=== PATIENT | male | born 1960 | race Caucasian/White ===

== ENCOUNTER → 2017-10-15 | Outpatient (CLI) | payer MEDICARE ==
[~2017-10-15] MED LIST: ACE3 PO; ASP325 PO; CEP500 PO; CEPH-312 PO; CYC10 PO; DIA10 PO; FAM20 PO; FUR20 PO; FURO-45 PO; GAB300 PO; GABA25PO16 PO; GABAPENTIN; HYDR-3087 PO; HYDR-3102 PO; HYDROCODONE PO; INDO-1 PO; INDO75CA PO; IOPAMIDOL 76% 75 ML INFUS BTL 75 ML ONE; KET10 PO; LOR5/325 PO; LOR7.5/325 PO; MAX75 PO; MORP-46 PO; OND8 PO; OXYC15TA PO; PAN40 PO; PAR20 PO; PER PO; PRA20 PO; PRAM0.5T27 PO; PRAV10TA45 PO; ROS10 PO; VENL100T21 PO; VENL150C61 PO; VENL75TA PO; [UNRECOGNIZED DRUG - CODE] PO
--- NOTE | 2017-10-15 14:01 | RADIOLOGY IMAGING REPORT ---
FACILITY: [facility] [place] PATIENT NAME: Ozzy Wheeler : 1960 MR: [id number] V: [id number] EXAM DATE: ORDERING PHYSICIAN: HEMALATHA PUGH TECHNOLOGIST: Location: [facility] Patient: Ozzy Wheeler : 1960 Visit/Account:[id number] Date of Sevice: 10/15/2017 ABDOMEN/PELVIS W/WO CONTRAST HISTORY: Abdominal pain, feeling of lesion in right upper and right lower abdomen wall x1 year TECHNIQUE: Axial images acquired through the abdomen/pelvis both with and without IV contrast.. Charleen nal and sagittal reformatting also performed. Dose Lowering Technique One of the following dose optimization techniques was utilized in the performance of this exam: Autom ated exposure control; adjustment of the mA and/or kV according to the patient's size; or use of an i terative reconstruction technique. Specific details can be referenced in the facility's radiology C T exam operational policy. CONTRAST: 75 mL Isovue-370 COMPARISON: March 16, 2010 FINDINGS: Visualized lung bases: Negative. Hepatobiliary: Negative. Spleen: Accessory splenule Adrenals: Negative. Pancreas: Negative. Kidneys ureters and bladder: There is a small subcentimeter hypodensity anterior left kidney too smal l to characterize although appears similar to the prior examination . There is moderate bladder wall thickening Genitalia: Prostate gland appears mildly inhomogeneous. There are calcifications along the base of the penis GI: The appendix is visualized does not appear inflamed. There is no evidence of bowel obstruction or bowel wall thickening Vessels/spaces/nodes: There are moderate vascular calcifications present . Bones/soft tissues: There is a small umbilical hernia containing fat. There are small bilateral ing uinal hernias containing fat. . There are postsurgical changes lower lumbar spine Additional findings: None pertinent. IMPRESSION: There is a small umbilical hernia containing fat and small bilateral inguinal hernias containing fat Moderate bladder wall thickening possibly related to cystitis or BPH although the prostate does not a ppear grossly enlarged. It is mildly inhomogeneous. Moderate vascular calcifications Additional chronic findings as described Report Dictated By: Nicole Brito MD at 10/15/2017 1:43 PM Report E-Signed By: Nicole Brito MD at 10/15/2017 1:56 PM WSN:[email or web address]
== END ==
LOC: CT 07:38
PROVIDERS: ATTEND Nurse Practitioner Family
DX: K42.9 Umbilical hernia without obstruction or gangrene (principal); I25.10 Atherosclerotic heart disease of native coronary artery without angina pectoris
CPT/HCPCS: 74178; Q9967

== ENCOUNTER → 2017-12-16 | Outpatient (CLI) | payer MEDICARE ==
[~2017-12-16] MED LIST changes: -IOPAMIDOL 76% 75 ML INFUS BTL 75 ML ONE
--- NOTE | 2017-12-16 16:43 | RADIOLOGY IMAGING REPORT ---
[place] [facility] [place] [place] Ozzy Wheeler : 1960 MR: [id number] V: [id number] EXAM DATE: ORDERING PHYSICIAN: JOSE KHAN TECHNOLOGIST: Location: Patient: Ozzy Wheeler : 1960 Visit/Account:[id number] Date of Sevice: 12/16/2017 Technique: WRIST BILAT 1 OR 2 VIEWS HISTORY: Chronic pain Comparison studies: None FINDINGS: There is no acute fracture. The navicular is unremarkable. The alignment of the right wri st is maintained. There is a potential small ossific density dorsal to the carpal row which may repr esent the sequela of previous trauma or osseous superimposition. No significant soft tissue swelling . IMPRESSION: 1. No acute osseous process. 2. Incidental finding as above. Report Dictated By: Deangelo Sprague DO at 12/16/2017 4:35 PM Report E-Signed By: Deangelo Sprague DO at 12/16/2017 4:38 PM WSN:[id number]
== END ==
LOC: RAD 15:47
PROVIDERS: ATTEND Anesthesiology Pain Medicine
DX: M25.532 Pain in left wrist (principal); M25.531 Pain in right wrist

== ENCOUNTER → 2018-04-13 | Outpatient (CLI) | payer MEDICARE ==
[~2018-04-13] MED LIST changes: +GADOBENATE 529MG/1ML 15ML VIAL IVP ONE
--- NOTE | 2018-04-13 10:08 | RADIOLOGY IMAGING REPORT ---
FACILITY: [facility] [place] PATIENT NAME: Ozzy Wheeler : 1960 MR: [id number] V: [id number] EXAM DATE: ORDERING PHYSICIAN: GWEN CHUNG TECHNOLOGIST: Location: [facility] Patient: Ozzy Wheeler : 1960 Visit/Account:[id number] Date of Sevice: 04/13/2018 Exam type: ORBITS FOREIGN BODY 1 VIEW History: Pre-MRI screening Comparison: August 04, 2015. Findings: No radiopaque metallic foreign bodies project over the orbits IMPRESSION: 1. No radiopaque metallic foreign bodies project over the orbits Report Dictated By: Nicole Brito MD at 04/13/2018 10:04 AM Report E-Signed By: Nicole Brito MD at 04/13/2018 10:05 AM WSN:[email or web address]
--- NOTE | 2018-04-13 12:17 | RADIOLOGY IMAGING REPORT ---
FACILITY: [facility] [place] PATIENT NAME: Ozzy Wheeler : 1960 MR: [id number] V: [id number] EXAM DATE: ORDERING PHYSICIAN: GWEN CHUNG TECHNOLOGIST: [place] [facility] [place] Patient: Ozzy Wheeler : 1960 Visit/Account:[id number] Date of Sevice: 04/13/2018 C SPINE W W/O CONTRAST COMPARISON: None Additional pertinent history: Chronic neck pain with numbness and tingling Technique: Multiplanar multisequence cervical spine MRI was performed with and without gadolinium enh ancement. CONTRAST: 15 ml of MultiHance. FINDINGS: Vertebral body height and alignment: Negative Vertebral marrow signal: Mild type II degenerative endplate changes at C5-C6. Otherwise negative Vertebral bodies: Anteriorly and posteriorly directed osteophytes in the mid to lower cervical spine. Otherwise negative Cervical spinal cord signal, craniocervical junction and visualized posterior fossa: Negative Surrounding soft tissues: Negative Inspection of the disc spaces reveal the following: C1-C2: Negative C2-C3: Posterior broad-based disc protrusion with facet hypertrophic changes. No significant canal o r neural foraminal narrowing. C3-C4: Posterior broad-based disc protrusion with facet and uncovertebral degenerative changes. Mild bilateral neural foraminal narrowing without canal stenosis. C4-C5: Circumferential disc bulging with facet and uncovertebral degenerative changes. Superimposed right neural foraminal disc extrusion. Moderate right-sided neural foraminal narrowing. Mild left-s ided neural foraminal narrowing. No canal stenosis C5-C6: . Posterior broad-based disc protrusion with facet and uncovertebral degenerative changes. S evere bilateral neural foraminal narrowing with mild canal stenosis. C6-C7: Posterior broad-based disc protrusion with facet and uncovertebral degenerative changes. Supe rimposed left neural foraminal disc extrusion. Severe left-sided neural foraminal narrowing. Modera te right-sided neural foraminal narrowing. Moderate canal stenosis with mild posterior displacement of the cord at this level. C7-T1: Negative Pathologic enhancement: Negative. Impression: 1. Multilevel spondylitic change as discussed above. 2. Findings felt to be potentially most significant at C6-C7 with moderate canal stenosis, severe le ft-sided neural foraminal narrowing and severe right-sided neural foraminal narrowing. Report Dictated By: Anish Freire MD at 04/13/2018 12:08 PM Report E-Signed By: Anish Freire MD at 04/13/2018 12:13 PM WSN:[id number]
== END ==
LOC: MRI 05:09
PROVIDERS: ATTEND Clinical Nurse Specialist Family Health
DX: M47.892 Other spondylosis, cervical region (principal); M48.02 Spinal stenosis, cervical region
CPT/HCPCS: 70030; 72156; A9577

== ENCOUNTER → 2018-09-23 | Outpatient (CLI) | payer MEDICARE ==
[~2018-09-23] MED LIST changes: +ALBU8.5H IH; +ALL300 PO; +ASPI-1471 PO; +ATOR40TA24 PO; +CEPH-13 PO; +FURO20TA19 PO; +GABA-549 PO; -GADOBENATE 529MG/1ML 15ML VIAL IVP ONE; +HYDR-4225 PO; +HYDR-653 PO; +LEVO50TA86 PO; +LISI5TAB25 PO; +POTA-1 PO; +TESTOSTERONE 200 MG/ML IM; +TESTOSTERONE IM; +TRAZ100T31 PO; +VILA20TA PO
== END ==
LOC: LAB 09:30
PROVIDERS: ATTEND Nurse Practitioner Family
DX: E23.0 Hypopituitarism (principal); N50.89 Other specified disorders of the male genital organs; N45.2 Orchitis; R73.01 Impaired fasting glucose; E78.00 Pure hypercholesterolemia, unspecified; Z87.19 Personal history of other diseases of the digestive system; Z86.39 Personal history of other endocrine, nutritional and metabolic disease
CPT/HCPCS: 36415; 82040; 82247; 82310; 82374; 82435; 82565; 82670; 82947; 84075; 84132; 84155; 84270; 84295; 84403; 84450; 84460; 84520; 85027

== ENCOUNTER → 2019-02-11 | Outpatient (CLI) | payer MEDICARE ==
[2019-02-11 11:47] LABS: LDL CHOLESTEROL 45 mg/dl
== END ==
LOC: LAB 11:02
PROVIDERS: ATTEND Internal Medicine
DX: E78.00 Pure hypercholesterolemia, unspecified (principal); R07.2 Precordial pain
CPT/HCPCS: 36415; 82040; 82247; 82310; 82374; 82435; 82465; 82565; 82947; 83718; 84075; 84132; 84155; 84295; 84450; 84460; 84478; 84520